=== PATIENT | female | born 1955 | race Caucasian/White ===

== ENCOUNTER 2018-11-24 18:59 | Emergency (ER) | payer MEDICARE, OTHER, MEDICAID ==
[~2018-11-24] VITALS: Ht 157.5 cm; Wt 54.4 kg
[~2018-11-24 18:59] MED LIST: ACETAMINOPHEN325 M1 PO; ALLERGY10 M1; AMBEREN; ARTIFICIAL TEA1 EACH; ARTIFICIAL TEA1 EACH OP; ASPIRIN EC325 M1; ASPIRIN325 PO; CLARITIN10 MG PO; COLACE100 MG PO; DOCUSATE SODIU100 MG; FISH OIL 1,001000 M1; FLAX OIL1000 MG PO; FLAX SEED OIL1000 MG; FLONASE 0.05%50 MCG NASAL; KEFLEX500 MG PO; LIDODERM 5%1 PATC1 TRANSDERM; LIDODERM 5%1 PATCH; LISINOPRIL10 MG PO; MECLIZINE HCL25 M1 PO; NAPROSYN500 MG; OXYBUTYNIN 5 MG5 M2 PO; OXYBUTYNIN CHLO10 MG PO; PRINIVIL10 MG; ROBITUSSIN100 MG/53 PO; TRINATE TABLET1 TAB PO; TUSSIN COU10 MG/5 ML; TYLENOL325 MG PO; ULTRAM 50MG TAB50 MG PO; VITAMIN D1000 UNI1 PO; ZANAFLEX2 M1; ZANAFLEX4 MG PO; ZOCOR 10 MG TAB10 MG PO
[2018-11-24] MEDS ORDERED: FOSAMAX 70 MG T70 MG PO (19:13)
[2018-11-24] MEDS ORDERED: PROAIR HFA8.5 GM INH (19:14)
[2018-11-24] MEDS ORDERED: NITROFURANTOIN100 MG PO (19:14)
[2018-11-24] MEDS ORDERED: OMEPRAZOLE40 MG PO (20:09)
[2018-11-24 20:22] VITALS: BP 154/89
--- NOTE | 2018-11-26 13:33 | EKG ---
[place] [address] ELECTROCARDIOGRAM REPORT Name: ROSA MARIA SANTAMARIA Room: [facility]#: [id number] Admission: 11/24/18 Attend Phys: Discharge: 11/24/18 Date of : 55 Report #: [id number] THIS REPORT FOR: //name// [facility] ED Test Date: 2018-11-24 Test Time: 19:42:06 Pat Name: ROSA MARIA SANTAMARIA Department: Room: Gender: F [employer]ump Grader Operator: BRY : 1955 Requested By: Luis Mireles Order Number: [id number] MD: Ac Hammond Measurements Intervals [place] Rate: 86 P: 71 MI: 141 QRS: 57 QRSD: 81 T: 44 QT: 355 QTc: 425 Interpretive Statements Sinus rhythm Probable left atrial enlargement Compared to ECG 07/28/2016 23:57:59 No significant changes Electronically Signed On 11-26-2018 13:33:21 CDT by Ac Hammond [email or web address] <ELECTRONICALLY SIGNED> By: Ac Hammond MD, [facility] 11/26/18 [phone] [id number] Ac Hammond MD, FACC /EPI
== END 2018-11-24 20:40 | disposition home or self-care (01) ==
LOC: M.ERS 18:59
DX: R07.89 Other chest pain (principal); E78.00 Pure hypercholesterolemia, unspecified

== ENCOUNTER 2018-11-26 12:36 | Emergency (ER) | payer MEDICARE, MEDICAID ==
[~2018-11-26] VITALS: Ht 157.5 cm; Wt 53.8 kg
[~2018-11-26 12:36] MED LIST changes: +FOSAMAX 70 MG T70 MG PO; +NITROFURANTOIN100 MG PO; +OMEPRAZOLE40 MG PO; +PROAIR HFA8.5 GM INH
[2018-11-26] MEDS ORDERED: ZOFRAN ODT4 MG PO (13:52)
[2018-11-26 14:14] VITALS: BP 113/72
== END 2018-11-26 14:16 | disposition home or self-care (01) ==
LOC: M.ERS 12:36
DX: S09.8XXA Other specified injuries of head, initial encounter (principal); W18.39XA Other fall on same level, initial encounter; Y93.89 Activity, other specified; Y92.89 Other specified places as the place of occurrence of the external cause; Y99.8 Other external cause status